=== PATIENT | female | born 1960 | race Caucasian/White ===

== ENCOUNTER 2023-03-22 07:33 | Day surgery (SDC) | payer BC ==
[~2023-03-22] VITALS: Ht 162.6 cm; Wt 64.7 kg
[~2023-03-22 07:33] MED LIST: ALL10TAB3 PO; CALC600C3 PO; FLON1SPR NARES; LIDOCAINE 2% 100MG/5ML SDV (FOR ANES.) As Ordered ONE; NS 1,000 ML IV ONE; OMEG12004 PO; PANT40TA29 PO; QC F0.52 PO; SIMV10TA21 PO; propofoL 200 MG/20 ML VIAL As Ordered ONE
[2023-03-22 09:16] VITALS: BP 145/85; TEMP 97.3; O2SAT 100
== END 2023-03-22 09:58 | disposition home or self-care (01) ==
LOC: M OPP 07:33
PROVIDERS: ATTEND Internal Medicine Gastroenterology
DX: Z12.11 Encounter for screening for malignant neoplasm of colon (principal); K64.0 First degree hemorrhoids; K57.30 Diverticulosis of large intestine without perforation or abscess without bleeding; Z53.8 Procedure and treatment not carried out for other reasons; K22.89 Other specified disease of esophagus; R12 Heartburn; Z79.02 Long term (current) use of antithrombotics/antiplatelets; Z79.51 Long term (current) use of inhaled steroids; Z79.899 Other long term (current) drug therapy; Z88.0 Allergy status to penicillin; Z91.013 Allergy to seafood

== ENCOUNTER 2023-08-22 08:18 | Day surgery (SDC) | payer BC ==
[~2023-08-22] VITALS: Ht 162.6 cm; Wt 63.6 kg
[~2023-08-22 08:18] MED LIST changes: +COLA100C5 PO; -LIDOCAINE 2% 100MG/5ML SDV (FOR ANES.) As Ordered ONE; -NS 1,000 ML IV ONE; -propofoL 200 MG/20 ML VIAL As Ordered ONE
[2023-08-22] MEDS: NS 1,000 ML IV ONE (09:10)
[2023-08-22] MEDS ORDERED: LIDOCAINE 2% 100MG/5ML SDV (FOR ANES.) As Ordered ONE (09:46)
[2023-08-22] MEDS ORDERED: propofoL 200 MG/20 ML VIAL As Ordered ONE (09:46)
[2023-08-22 10:43] VITALS: TEMP 97
[2023-08-22 10:57] VITALS: BP 132/65; O2SAT 100
== END 2023-08-22 11:05 | disposition home or self-care (01) ==
LOC: M OPP 08:18
PROVIDERS: ATTEND Internal Medicine Gastroenterology
DX: Z12.11 Encounter for screening for malignant neoplasm of colon (principal); K64.0 First degree hemorrhoids; Z79.52 Long term (current) use of systemic steroids; Z79.899 Other long term (current) drug therapy; Z88.0 Allergy status to penicillin; Z91.013 Allergy to seafood

== ENCOUNTER → 2024-05-30 | Outpatient (CLI) | payer BC, SELFPAY ==
[~2024-05-30] MED LIST changes: +ISOVUE-370 76% 100ML VIAL ONE
== END ==
LOC: M PLAIMG 08:22
PROVIDERS: ATTEND Surgery
DX: K43.0 Incisional hernia with obstruction, without gangrene (principal); K40.90 Unilateral inguinal hernia, without obstruction or gangrene, not specified as recurrent
CPT/HCPCS: 74177; Q9967